=== PATIENT | male | born 2000 | race Caucasian/White ===

== ENCOUNTER 2020-08-06 10:15 | Emergency (ER) | payer MEDICAID ==
[~2020-08-06] VITALS: Ht 165.1 cm; Wt 82.6 kg
--- NOTE | 2020-08-06 10:19 | NUR ---
Patient ambulated to bed 8. RN evaluating the patient at bedside.
[2020-08-06 10:25] VITALS: BP 128/71
[2020-08-06] MEDS ORDERED: ACETAMINOPHEN EXTRA STRENGTH 500 MG TAB PO ONE (10:25)
--- NOTE | 2020-08-06 10:26 | NUR ---
DR ALFARO AT BEDSIDE
--- NOTE | 2020-08-06 10:31 | NUR ---
19 YEAR OLD MALE COMPLAINS OF TONSIL SWELLING AND FEVER X 3 DAYS. TONSILS VISIBLY REDDENED WITH PUS. PT AOX4, BREATHING EVEN AND UNLABORED, SKIN WARM AND DRY. BED IN LOWEST POSITION, SEMI-FOWLERS, LOCKED, BED RAIL UPX1 PMH - DENIES ALLERGIES - NKA
[2020-08-06] MEDS ORDERED: PENI-321 PO (10:40)
[2020-08-06] MEDS ORDERED: IBUP-2213 PO (10:40)
[2020-08-06 11:26] VITALS: BP 139/87
--- NOTE | 2020-08-06 11:26 | NUR ---
Patient discharged with v/s stable. Written and verbal after care instructions given and explained. Patient alert, oriented and verbalized understanding of instructions. Ambulatory with steady gait. All questions addressed prior to discharge. ID band removed. Patient advised to follow up with PMD. Rx of MOTRIN & PENICILIN V POTASSIUM given. Patient educated on indication of medication including possible reaction and side effects. Opportunity to ask questions provided and answered.
== END 2020-08-06 11:26 | disposition home or self-care (01) ==
LOC: MED 10:15
DX: J02.0 Streptococcal pharyngitis (principal); Z79.899 Other long term (current) drug therapy
CPT/HCPCS: 87081; 99283